=== PATIENT | female | born 1940 | race Asian ===

== ENCOUNTER 2016-04-01 23:39 | Inpatient (IN) | payer OTHER ==
[2016-04-01] MEDS ORDERED: ONDANSETRON 4 MG/2 ML VIAL ONE (23:56)
[2016-04-01] MEDS ORDERED: ONDANSETRON 4 MG/2 ML VIAL IVP ONE (23:57)
[2016-04-02] MEDS ORDERED: NS 1,000 ML IV ONE (00:02)
[2016-04-02] MEDS: NS 500 ML IV ONE ×2 (00:03→00:06)
--- NOTE | 2016-04-02 00:05 | EDPHY ---
HPI/HX/ROS/PE/MDM Narrative: Chief complaint: Abdominal pain, nausea and vomiting HPI: 75-year-old female presenting with upper abdominal pain, nausea vomiting and some loose stools today. Pain has that is worse over the course of the day. Has had some chills but no fever. No hematemesis. No blood or melena. No urinary symptoms. She has a history of a ruptured appendicitis in December of this year. Otherwise has no medical problems. She takes no medications. Has no allergies to medications. Pain is described as crampy in the upper abdomen. Occasionally has some lower abdominal pain as well. Has had 1 episode of large emesis and has also had some dry heaving associated. ROS: 10 point Review of Systems is negative except as noted in the HPI. Physical exam: Gen: Awake, Alert, uncomfortable appearing HEENT: Nose: no rhinorrhea Eyes: PERRLA, EOMI Mouth: Moist mucosa Neck: Supple, no JVD Chest: nontender, lungs clear to auscultation Heart: S1, S2 normal, no murmur Abd: Soft, epigastric and right lower quadrant tenderness to palpation, no guarding, no right upper quadrant pain Back: no CVA tenderness, no midline tenderness Ext: no edema, non-tender Skin: no rash Neuro: CN II-XII intact, Sensation grossly intact, Strength 5/5 in bilateral upper and lower extremities ED Course: EC. Sinus rhythm. Normal axis. Normal intervals. No ST or T-wave changes. Normal ECG. CT scan of the abdomen and pelvis: Interpreted by Dr. Estrada. There is a small bowel obstruction with a possible transition zone in the distal ilium. 0120 patient is resting. Pain is improved. CT scan shows a small bowel obstruction, likely an adhesion secondary to her appendectomy in December. I have paged Dr. Alaniz who was on-call for Dr. Toure who performed her appendectomy. NG tube ordered. Patient to be admitted under Dr. Alaniz's service. - Data Points Laboratory Results: Laboratory Results 04/02/16 00:01 04/02/16 00:01 04/02/16 00:01 WBC 12.78 H 10^3/uL (3.80-9.50) RBC 4.60 10^6/uL (4.18-5.33) Hgb 14.3 g/dL (12.6-16.3) Hct 42.0 % (38.0-47.0) MCV 91.3 fL (81.5-99.8) MCH 31.1 pg (27.9-34.1) MCHC 34.0 g/dL (32.4-36.7) RDW 13.3 % (11.5-15.2) Plt Count 260 10^3/uL (150-400) MPV 9.8 fL (8.7-11.7) Neut % (Auto) 81.8 H % (39.3-74.2) Lymph % (Auto) 14.6 L % (15.0-45.0) [place] % (Auto) 2.8 L % (4.5-13.0) Eos % (Auto) 0.1 L % (0.6-7.6) Baso % (Auto) 0.3 % (0.3-1.7) Nucleat RBC Rel Count 0.0 % (0.0-0.2) Absolute Neuts (auto) 10.46 H 10^3/uL (1.70-6.50) Absolute Lymphs (auto) 1.86 10^3/uL (1.00-3.00) Absolute Monos (auto) 0.36 10^3/uL (0.30-0.80) Absolute Eos (auto) 0.01 L 10^3/uL (0.03-0.40) Absolute Basos (auto) 0.04 10^3/uL (0.02-0.10) Absolute Nucleated RBC 0.00 10^3/uL (0-0.01) Immature Gran % 0.4 % (0.0-1.1) Immature Gran # 0.05 10^3/uL (0.00-0.10) Sodium 140 mEq/L (134-144) Potassium 4.4 mEq/L (3.5-5.2) Chloride 103 mEq/L (97-110) Carbon Dioxide 24 mEq/l (22-31) Anion Gap 13 mEq/L (8-16) BUN 17 mg/dL (7-23) Creatinine 0.6 mg/dL (0.6-1.0) Estimated GFR > 60 Glucose 183 H mg/dL (70-100) Calcium 9.6 mg/dL (8.5-10.4) Total Bilirubin 1.2 mg/dL (0.1-1.4) Conjugated Bilirubin 0.2 mg/dL (0.0-0.5) Unconjugated Bilirubin 1.0 mg/dL (0.0-1.1) AST 36 IU/L (14-46) ALT 35 IU/L (9-52) Alkaline Phosphatase 111 IU/L (38-126) Troponin I < 0.012 ng/mL (0-0.034) Total Protein 7.8 g/dL (6.3-8.2) Albumin 4.7 g/dL (3.5-5.0) Lipase 145.0 IU/L (23-300) Specimen Hemolysis 116 Medications Given: Discontinued Medications Sodium Chloride (Ns) 500 mls @ 0 mls/hr IV EDNOW ONE PRN Reason: Wide Open Stop: 04/02/16 00:03 Last Admin: 04/02/16 00:06 Dose: Not Given Sodium Chloride (Ns) 1,000 mls @ 0 mls/hr IV ONCE ONE PRN Reason: Wide Open Stop: 04/02/16 00:03 Last Admin: 04/02/16 00:06 Dose: 1,000 mls Morphine Sulfate (Morphine) 2 mg IVP EDNOW ONE Stop: 04/02/16 00:01 Last Admin: 04/02/16 00:03 Dose: 2 mg Ondansetron HCl (Zofran) 4 mg IVP EDNOW ONE Stop: 04/01/16 23:58 Last Admin: 04/01/16 23:58 Dose: 4 mg Pantoprazole Sodium (Protonix) 40 mg IVP EDNOW ONE Stop: 04/02/16 00:30 Last Admin: 04/02/16 00:36 Dose: 40 mg General Time Seen by Provider: 04/01/16 23:56 Initial Vital Signs: Initial Vital Signs Temperature (C) 36.8 C 04/01/16 23:43 Heart Rate 81 04/01/16 23:43 Respiratory Rate 20 04/01/16 23:43 Blood Pressure 158/91 H 04/01/16 23:43 O2 Sat (%) 98 04/01/16 23:43 O2 Delivery Mode Nasal Cannula O2 (L/minute) 1 Allergies/Adverse Reactions: No Known Allergies Allergy (Verified 04/01/16 23:45) Home Medications: Medication Instructions Recorded Acetaminophen [Tylenol 325mg (*)] 650 mg PO Q4 PRN #0 tab 01/27/16 Departure - Departure Disposition: [facility] Inpatient Acute Clinical Impression: Small bowel obstruction Condition: Fair
[2016-04-02 00:09] LABS: % IMMATURE GRANULYOCYTES 0.4 % (0.0-1.1); ABSOLUTE IMMATURE GRANULOCYTES 0.05 10^3/uL (0.00-0.10); ADD DIFF? NO; ADD MORPH? NO; ADD SCAN? NO; ATYPICAL LYMPHOCYTE FLAG 0 (0-99); FRAGMENT RBC FLAG 0 (0-99); HEMOGLOBIN 14.3 g/dL (12.6-16.3); LEFT SHIFT FLG 10 (0-99); LIPEMIA HEMOLYSIS FLAG 90 (0-99); MEAN CELL HEMOGLOBIN 31.1 pg (27.9-34.1); MEAN CELL VOLUME 91.3 fL (81.5-99.8); MEAN PLATELET VOLUME 9.8 fL (8.7-11.7); PLATELET CLUMPS FLAG 30 (0-99); PLATELET COUNT 260 10^3/uL (150-400); RED CELL DISTRIBUTION WIDTH 13.3 % (11.5-15.2)
--- NOTE | 2016-04-02 00:12 | CPEKG ---
Heart Rate: 63 RR Interval: 952 P-R Interval: 180 QRSD Interval: 74 QT Interval: 456 QTC Interval: 467 P [place]: 61 QRS [place]: 10 T Wave [place]: 12 EKG Severity - OTHERWISE NORMAL ECG - EKG Impression: SINUS RHYTHM EKG Impression: VENTRICULAR PREMATURE COMPLEX Electronically Signed By: Zaid Villalpando 02-Apr-2016 00:47:38
[2016-04-02 00:20] LABS: ALANINE AMINOTRANSFERASE 35 IU/L (9-52); ALBUMIN 4.7 g/dL (3.5-5.0); ALKALINE PHOSPHATASE 111 IU/L (38-126); ANION GAP 13 mEq/L (8-16); ASPARTATE AMINOTRANSFERASE 36 IU/L (14-46); BILIRUBIN,TOTAL 1.2 mg/dL (0.1-1.4); BILIRUBIN-CONJUGATED 0.2 mg/dL (0.0-0.5); CALCIUM 9.6 mg/dL (8.5-10.4); CARBON DIOXIDE 24 mEq/l (22-31); CHLORIDE 103 mEq/L (97-110); CREATININE 0.6 mg/dL (0.6-1.0); GLOMERULAR FILTRATION RATE > 60; GLUCOSE 183 mg/dL (70-100); POTASSIUM 4.4 mEq/L (3.5-5.2); SODIUM 140 mEq/L (134-144); SPECIMEN HEMOLYSIS 116; TOTAL PROTEIN 7.8 g/dL (6.3-8.2)
[2016-04-02] MEDS ORDERED: PANTOPRAZOLE SODIUM 40 MG VIAL IVP ONE (00:29)
[2016-04-02 00:34] LABS: TROPONIN I < 0.012 ng/mL (0-0.034)
[2016-04-02] MEDS ORDERED: IOPAMIDOL (ISOVUE-300) 100 ML BTL IV ONE ×2 (00:39→00:55)
[2016-04-02] MEDS ORDERED: LIDOCAINE 2% JELLY 20 ML (UROJECT) ONE (01:30)
[2016-04-02] MEDS ORDERED: BENZOCAINE UNIT DOSE SPRAY HURRICAINE MM ONE ×2 (01:50→01:56)
[2016-04-02] MEDS ORDERED: LIDOCAINE 2% JELLY 20 ML (UROJECT) UR ONE (01:56)
[2016-04-02] MEDS ORDERED: ACETAMINOPHEN 325 MG TAB PO PRN (02:03)
[2016-04-02] MEDS ORDERED: ONDANSETRON DISINTEGRATING 4 MG TAB PO PRN (02:03)
[2016-04-02] MEDS ORDERED: ONDANSETRON 4 MG/2 ML VIAL IVP PRN (02:03)
--- NOTE | 2016-04-02 02:08 | PDGENHP ---
History and Physical - Chief Complaint abdominal pain - History of Present Illness Patient is a a 75-year-old female with history of recent ruptured appendicitis in 12/2015 presents to the ED with complaint of abdominal pain nausea and vomiting. She reports bowel movements have been irregular and infrequent for the past month. On day of presentation she suddenly developed loss of appetite as well as crampy type diffuse abdominal pain. She went to her daughter's house for dinner but did not eat. On arrival back home she began dry heaving and had 1 large bilious episode of vomiting. Around this time she also had a episode of loose stool. She continues to pass flatus. Given her symptoms she decided to come to the ED for further evaluation. In the ED patient was afebrile and hemodynamically stable. Labs revealed mild leukocytosis but normal CMP, negative troponin and normal EKG. CT abdomen and pelvis was obtained and revealed SBO with fecalization and transition in the right lower quadrant. NGT was placed in the ED and patient was admitted for further management. History Information - Allergies/Home Medication List Allergies/Adverse Reactions: No Known Allergies Allergy (Verified 04/01/16 23:45) I have personally reviewed and updated: family history, medical history, social history, surgical history - Past Medical History Additional medical history: Distant history of breast cancer, treated with lumpectomy and RT. - Surgical History Additional surgical history: Laparoscopic appendectomy and abscess drainage (2015) - Family History Positive for: non-pertinent - Social History Smoking Status: Never smoked Alcohol Use: None Drug Use: None Additional social history: Patient currently works as has a [employer]. Lives alone , 2 daughters live in the area. Review of Systems ROS: 10pt was reviewed & negative except for what was stated in HPI & below Physical Exam Temp Pulse Resp BP Pulse Ox 36.5 C 80 20 145/104 H 94 04/02/16 02:04 04/02/16 02:04 04/02/16 02:04 04/02/16 02:04 04/02/16 02:04 Constitutional: no apparent distress, appears nourished, uncomfortable Eyes: PERRL, anicteric sclera, EOMI Ears, Nose, Mouth, Throat: moist mucous membranes, hearing normal, ears appear normal, no oral mucosal ulcers Cardiovascular: regular rate and rhythym, no murmur, rub, or gallop, pulses symmetric bilaterally, No JVD, No edema Peripheral Pulses: 2+: dorsalis-pedis (R), dorsalis-pedis (L) Respiratory: no respiratory distress, no rales or rhonchi, clear to auscultation Gastrointestinal: other (Hypoactive bowel sounds, soft, mild diffuse tenderness) , No guarding, No rebound Genitourinary: no bladder fullness, no bladder tenderness Skin: warm, normal color, no rashes or abrasions, no fluctuance, no induration, No mottled Musculoskeletal: full muscle strength, no muscle tenderness, normal joint ROM, no joint effusions Neurologic: AAOx3, sensation intact bilaterally, CN II-XII Intact, No weakness, No numbness Psychiatric: interacting appropriately, not anxious, not encephalopathic, thought process linear Lab Data & Imaging Review 04/02/16 04:58 04/02/16 04:58 WBC 12.78 10^3/uL (3.80-9.50) H 04/02/16 00:01 RBC 4.60 10^6/uL (4.18-5.33) 04/02/16 00:01 Hgb 14.3 g/dL (12.6-16.3) 04/02/16 00:01 Hct 42.0 % (38.0-47.0) 04/02/16 00:01 MCV 91.3 fL (81.5-99.8) 04/02/16 00:01 MCH 31.1 pg (27.9-34.1) 04/02/16 00:01 MCHC 34.0 g/dL (32.4-36.7) 04/02/16 00:01 RDW 13.3 % (11.5-15.2) 04/02/16 00:01 Plt Count 260 10^3/uL (150-400) 04/02/16 00:01 MPV 9.8 fL (8.7-11.7) 04/02/16 00:01 Neut % (Auto) 81.8 % (39.3-74.2) H 04/02/16 00:01 Lymph % (Auto) 14.6 % (15.0-45.0) L 04/02/16 00:01 [place] % (Auto) 2.8 % (4.5-13.0) L 04/02/16 00:01 Eos % (Auto) 0.1 % (0.6-7.6) L 04/02/16 00:01 Baso % (Auto) 0.3 % (0.3-1.7) 04/02/16 00:01 Nucleat RBC Rel Count 0.0 % (0.0-0.2) 04/02/16 00:01 Absolute Neuts (auto) 10.46 10^3/uL (1.70-6.50) H 04/02/16 00:01 Absolute Lymphs (auto) 1.86 10^3/uL (1.00-3.00) 04/02/16 00:01 Absolute Monos (auto) 0.36 10^3/uL (0.30-0.80) 04/02/16 00:01 Absolute Eos (auto) 0.01 10^3/uL (0.03-0.40) L 04/02/16 00:01 Absolute Basos (auto) 0.04 10^3/uL (0.02-0.10) 04/02/16 00:01 Absolute Nucleated RBC 0.00 10^3/uL (0-0.01) 04/02/16 00:01 Immature Gran % 0.4 % (0.0-1.1) 04/02/16 00:01 Immature Gran # 0.05 10^3/uL (0.00-0.10) 04/02/16 00:01 Sodium 140 mEq/L (134-144) 04/02/16 00:01 Potassium 4.4 mEq/L (3.5-5.2) 04/02/16 00:01 Chloride 103 mEq/L (97-110) 04/02/16 00:01 Carbon Dioxide 24 mEq/l (22-31) 04/02/16 00:01 Anion Gap 13 mEq/L (8-16) 04/02/16 00:01 BUN 17 mg/dL (7-23) 04/02/16 00:01 Creatinine 0.6 mg/dL (0.6-1.0) 04/02/16 00:01 Estimated GFR > 60 04/02/16 00:01 Glucose 183 mg/dL (70-100) H 04/02/16 00:01 Calcium 9.6 mg/dL (8.5-10.4) 04/02/16 00:01 Total Bilirubin 1.2 mg/dL (0.1-1.4) 04/02/16 00:01 Conjugated Bilirubin 0.2 mg/dL (0.0-0.5) 04/02/16 00:01 Unconjugated Bilirubin 1.0 mg/dL (0.0-1.1) 04/02/16 00:01 AST 36 IU/L (14-46) 04/02/16 00:01 ALT 35 IU/L (9-52) 04/02/16 00:01 Alkaline Phosphatase 111 IU/L (38-126) 04/02/16 00:01 Troponin I < 0.012 ng/mL (0-0.034) 04/02/16 00:01 Total Protein 7.8 g/dL (6.3-8.2) 04/02/16 00:01 Albumin 4.7 g/dL (3.5-5.0) 04/02/16 00:01 Lipase 145.0 IU/L (23-300) 04/02/16 00:01 Specimen Hemolysis 116 04/02/16 00:01 Visualized and Interpreted imaging results: Yes Interpretation: CT abdomen and pelvis: SBO with fecalization, transition in RLQ Visualized and Interpreted EKG results: Yes EKG Interpretation: Positive for: normal sinsus rhythm Assessment & Plan Assessment: Patient is a 75-year-old female with history of recent ruptured appendicitis 2 months ago, presents with abdominal pain nausea vomiting, CT reveals acute small -bowel obstruction. Plan: # acute small bowel obstruction Patient is still passing flatus, had an episode of likely overflow diarrhea prior to presentation. CT reveals significant fecalization in addition to SBO. - NGT to low cont suction - NPO - IVF hydration - monitor electrolytes - pain control prn - may require bowel disimpaction # dispo: admit to inpt service for > 2 MN stay # gen: NPO DVT ppx: low risk, SCDs Full code
[2016-04-02] MEDS: NS 1,000 ML IV SCH ×3 (03:54→22:03)
[2016-04-02 05:42] LABS: % IMMATURE GRANULYOCYTES 0.2 % (0.0-1.1); ABSOLUTE IMMATURE GRANULOCYTES 0.02 10^3/uL (0.00-0.10); ADD DIFF? NO; ADD MORPH? NO; ADD SCAN? NO; ATYPICAL LYMPHOCYTE FLAG 0 (0-99); FRAGMENT RBC FLAG 0 (0-99); HEMATOCRIT 38.6 % (38.0-47.0); HEMOGLOBIN 13.2 g/dL (12.6-16.3); LEFT SHIFT FLG 10 (0-99); LIPEMIA HEMOLYSIS FLAG 90 (0-99); MEAN CELL HEMOGLOBIN 31.1 pg (27.9-34.1); MEAN CELL HEMOGLOBIN CONCENTR. 34.2 g/dL (32.4-36.7); MEAN PLATELET VOLUME 9.9 fL (8.7-11.7); PLATELET CLUMPS FLAG 0 (0-99); PLATELET COUNT 234 10^3/uL (150-400); RED BLOOD CELL COUNT 4.24 10^6/uL (4.18-5.33); RED CELL DISTRIBUTION WIDTH 13.3 % (11.5-15.2)
[2016-04-02 05:59] LABS: ANION GAP 11 mEq/L (8-16); CARBON DIOXIDE 25 mEq/l (22-31); CHLORIDE 104 mEq/L (97-110); CREATININE 0.5 mg/dL (0.6-1.0); GLOMERULAR FILTRATION RATE > 60; GLUCOSE 162 mg/dL (70-100); MAGNESIUM 1.6 mg/dL (1.6-2.3); POTASSIUM 4.2 mEq/L (3.5-5.2); SODIUM 140 mEq/L (134-144)
[2016-04-02] MEDS: ENOXAPARIN 40 MG/0.4 ML SYR SC SCH (07:52)
--- NOTE | 2016-04-02 09:25 | SOAPPROG ---
SOAP Progress Note Assessment/Plan: Assessment/Plan 75yo F c SBO - VSS, HDS. Did have some pain this am which has responded to IV pain medications. Her abdomen is soft and nondistended without rebound or guarding. She does have hypoactive bowel sounds. Will plan to decompress today with NGT, have encouraged ambulation. Cont NGT. Plan for SBFT tomorrow if no bowel function today 04/02/16 09:22 Subjective: no nausea, minimal abdominal pain no flatus or BM Objective: Vital Signs Temp Pulse Resp BP Pulse Ox 36.8 C 65 16 148/80 H 99 04/02/16 08:43 04/02/16 08:43 04/02/16 08:43 04/02/16 08:43 04/02/16 08:43 Laboratory Results 04/02/16 04:58 04/02/16 04:58 04/01/16 04/02/16 04/03/16 05:59 05:59 05:59 Intake Total 1248 Output Total 75 Balance 1173 ICD10 Worksheet Patient Problems: Problems Problem Status Diagnosed Small bowel obstruction Acute Abdominal pain Acute Diarrhea Acute Nausea and vomiting Acute Ruptured appendicitis Acute
--- NOTE | 2016-04-02 11:34 | GHP ---
[f rep st] HISTORY AND PHYSICAL DATE OF ADMISSION: 04/02/2016 CHIEF COMPLAINT: Abdominal pain with nausea and vomiting. HISTORY OF PRESENT ILLNESS: This is a 75-year-old female, status post laparoscopic appendectomy for ruptured appendicitis performed in December of 2015 per my partner, Dr. Toure. The patient states connor t she had an uneventful course since her hospitalization; however, did develop some acute onset abdom inal pain, nausea, and vomiting approximately 24 hours ago. This persisted to the point where she did end up calling the call center and I did have a phone conversation with the patient's daughter. We discussed the patient's symptoms and I said that I was uncomfortable evaluating her over the phone, a s she was so far out from her surgery. She subsequently presented to the emergency department, where she was noted to be afebrile and hemodynamically stable. She did have a CT scan of her abdomen and pelvis, which did show some fecalization of the distal small bowel with a possible transition point i n the distal ileum, consistent with a small bowel obstruction. She denies having fevers or chills, a nd feels better after receiving some IV fluids, narcotics, and nasogastric tube. PAST MEDICAL HISTORY: Consistent for distant history of breast cancer. PAST SURGICAL HISTORY: Lumpectomy for the breast cancer with radiation and laparoscopic appendectomy performed in December of 2015. FAMILY HISTORY: Noncontributory. SOCIAL HISTORY: Denies alcohol or tobacco use. The patient works as a [employer]. Lives alone. Has 2 da ughters, who live in the area. REVIEW OF SYSTEMS: A full 10-point review of systems was performed and unless explicitly stated abov e, otherwise negative. CURRENT MEDICATIONS: Include orue-nny-ckvruiz herbal supplements alone. PHYSICAL EXAMINATION: VITAL SIGNS: Blood pressure 140/80, pulse 65. She is 99% on 2 L and has a tem perature of 36. GENERAL: She is alert and oriented, in no acute distress. CV: She has a regular r ate and rhythm without any murmurs. LUNGS: Clear. ABDOMEN: Soft, nondistended, nontender with hyp oactive bowel sounds. There is no rebound tenderness or guarding. EXTREMITIES: Warm and well perfu sed. LABS: White count is 10, H and H stable at 13 and 39, platelets 234. Chemistry is unremarkable. CT scan reviewed shows small bowel obstruction with fecalization of the distal small bowel, possible tr ansition point in the terminal ileum. ASSESSMENT AND PLAN: 75-year-old female with small bowel obstruction, status post laparoscopic appen dectomy for perforated appendicitis. I had a long discussion with the patient regarding her diagnosi s. Currently, clinically her abdomen is completely soft, nondistended, and has no worrisome features. The nasogastric tube is in place and it has evacuated approximately 100 cc of bilious fluid. I did tell the patient that more than likely this is secondary to adhesive disease, given her recent histor y and diagnosis of perforated appendicitis, and that it will more than likely resolve with conservati ve management. She has no worrisome findings at this point in time. We will plan to continue nasogas tric tube decompression, IV fluid hydration, and narcotics as needed. We will plan to reevaluate in the morning. If the patient has no bowel function at that point in time, would likely proceed with a small bowel follow-through, as this would assist with the distal fecalization, as it would be cathart ic in that respect. /[id number]/MODL
--- NOTE | 2016-04-02 12:59 | HOSPPROG ---
Hospitalist Progress Note Assessment/Plan: Assessment: Patient is a 75-year-old female with history of recent ruptured appendicitis 2 months ago, presents with abdominal pain nausea vomiting, CT reveals acute small -bowel obstruction. Plan: # acute small bowel obstruction continue care per surgery # dispo: admit to inpt service for > 2 MN stay # gen: NPO DVT ppx: low risk, SCDs Full code Subjective: continues to have abdominal pain. Denies flatus. No bowel movements. Objective: Vital Signs Temp Pulse Resp BP Pulse Ox 36.8 C 65 16 148/80 H 99 04/02/16 08:43 04/02/16 08:43 04/02/16 08:43 04/02/16 08:43 04/02/16 08:43 Laboratory Results 04/02/16 04:58 04/02/16 04:58 04/01/16 04/02/16 04/03/16 05:59 05:59 05:59 Intake Total 1248 Output Total 75 700 Balance 1173 -700 - Physical Exam Constitutional: no apparent distress, appears nourished, not in pain Cardiovascular: regular rate and rhythym, no murmur, rub, or gallop Respiratory: no respiratory distress, no rales or rhonchi, clear to auscultation Gastrointestinal: distension, other ( H), No tenderness, No guarding, No rebound Genitourinary: tirado in urethra (hypoactive bowel sounds) ICD10 Worksheet Patient Problems: Problems Problem Status Diagnosed Small bowel obstruction Acute Abdominal pain Acute Diarrhea Acute Nausea and vomiting Acute Ruptured appendicitis Acute
--- NOTE | 2016-04-02 13:20 | CT ---
CT Scan of the Abdomen and Pelvis (With Contrast) Clinical Indications: Abdominal pain. Comparison: January 22, 2016. Technique: Dilute contrast was given orally prior to scanning. 70 mL of Isovue were given intraveno usly by machine power injection. Multidetector helical CT imaging was performed from the diaphragm t o the symphysis pubis. Dose reduction techniques were utilized. Findings: Abdomen: The lung bases are clear, and there is no significant pleural fluid. The liver is normal. The biliary ducts and gallbladder are unremarkable. The pancreas and spleen are normal. The adrena l glands and kidneys are normal. No adenopathy and no masses are found. No aneurysm of the abdomina l aorta. Pelvis: The urinary bladder is unremarkable. No free fluid in the pelvis. No masses are identified. The colon is predominantly decompressed. There is a small bowel obstruction. Transition point is in the right lower quadrant distal ileum. There is fecalization of material in the small bowel. Calcified fibroid is noted in the low uterus. An exophytic fibroid is noted off the superior uterus. A calcified nodule unchanged is noted in the right ovary. Impression: 1. High-grade small bowel obstruction with transition in the ileum. There is fecalization of material in the colon. 2. Fibroid of the uterus and coarse calcification in the right ovary, benign is unchanged from compar marva examination. Critical results relayed by Dr. Estrada to Dr. Villalpando on April 02, 2016 at 1330 hours.
[2016-04-03 07:31] VITALS: RESP 18
--- NOTE | 2016-04-03 09:17 | SOAPPROG ---
SOAP Progress Note Assessment/Plan: Assessment/Plan 75yo F c SBO - abdomen remains soft and nondistended with good bowel sounds. Now passing flatus, no nausea/vomiting. Will plan for SBFT today. 04/02/16 09:22 04/03/16 09:16 Subjective: Doing well, passing flatus. No BM. Denies pain Objective: Vital Signs Temp Pulse Resp BP Pulse Ox 36.7 C 59 L 18 129/75 H 92 04/03/16 07:30 04/03/16 07:30 04/03/16 07:30 04/03/16 07:30 04/03/16 07:30 Laboratory Results 04/02/16 04:58 04/02/16 04:58 04/02/16 04/03/16 04/04/16 05:59 05:59 05:59 Intake Total 1248 2302 Output Total 75 925 Balance 1173 1377 ICD10 Worksheet Patient Problems: Problems Problem Status Diagnosed Small bowel obstruction Acute Abdominal pain Acute Diarrhea Acute Nausea and vomiting Acute Ruptured appendicitis Acute
[2016-04-03] MEDS: ENOXAPARIN 40 MG/0.4 ML SYR SC SCH (10:13)
--- NOTE | 2016-04-03 13:25 | DX ---
Small Bowel Follow-Through Indication: Obstruction. Comparison: April 02, 2016. Technique: Two bottles of dilute Gastrografin were administered via the NG, one was administered at t he start of the examination and then subsequently at 30 minutes. Spot fluoroscopic images were perfor med until contrast reached the cecum. fluoroscopic imaging with a compression paddle was performed. Fluoroscopy Dose: 28.4 mGy. Findings: Since prior examination, the patient has had NG tube placement. The bowel appears nondilate d. Gastrografin was used to evaluate the small bowel. At approximately one hour, there was colonic co ntrast present. Spot fluoroscopic imaging of the abdomen was obtained. A paddle was used to compress multiple loops of bowel. There is no transition point, and the bowel caliber is normal. Impression: Resolved small bowel obstruction with contrast reaching the cecum at one hour. Critical results relayed by Dr. Estrada to Dr. Alaniz April 03, 2016, 1517 hours.
[2016-04-03 15:48] VITALS: BP 137/67; PULSE 63; TEMP 98; O2SAT 95
--- NOTE | 2016-04-03 16:36 | GDS ---
[f rep st] DISCHARGE SUMMARY DISCHARGE DIAGNOSES: Partial small bowel obstruction. HOSPITAL COURSE: Patient is a 75-year-old female, over 2 months out from a laparoscopic appendectomy for perforated appendicitis. She presents to the ED on the evening of the with abdominal pain, nausea and vomiting. She subsequently had a CT scan, which showed small bowel obstruction. Her abdo tiffani exam at that point in time, was completely reassuring. She was managed conservatively with cyrus ogastric tube decompression. Subsequently ended up having minimal output. She underwent a small bow el follow-through which showed contrast all the way through the small bowel and into the colon at jus t over an hour. She, at that point in time, started to have bowel function. The nasogastric tube wa s removed. She then had her diet advanced, which was well tolerated by the patient with no pain. Olivia edge was subsequently discharged home in stable condition. DISCHARGE MEDICATIONS: Herbal supplements and Metamucil fiber. DISPOSITION: Home. She will follow up with her primary care provider, and call with any questions o r concerns. /[id number]/MODL
--- NOTE | 2016-04-03 16:40 | HOSPPROG ---
Hospitalist Progress Note Assessment/Plan: care transferred to Dr. Sutton who has accepted to take over care as PCP Objective: Vital Signs Temp Pulse Resp BP Pulse Ox 36.6 C 63 18 137/67 H 95 04/03/16 15:46 04/03/16 15:46 04/03/16 15:46 04/03/16 15:46 04/03/16 15:46 Laboratory Results 04/02/16 04:58 04/02/16 04:58 04/02/16 04/03/16 04/04/16 05:59 05:59 05:59 Intake Total 1248 2302 Output Total 75 925 900 Balance 1173 1377 -900 ICD10 Worksheet Patient Problems: Problems Problem Status Diagnosed Small bowel obstruction Acute Abdominal pain Acute Diarrhea Acute Nausea and vomiting Acute Ruptured appendicitis Acute
== END 2016-04-03 18:00 | disposition home or self-care (01) | DRG 390 ==
LOC: F1N 04-02 03:35
PROVIDERS: ADMIT Surgery; ATTEND Surgery
DX: K56.60 Unspecified intestinal obstruction (principal); Z85.3 Personal history of malignant neoplasm of breast; Z92.3 Personal history of irradiation
CPT/HCPCS: 96374; 97161-GP; G8978-GP-CI; G8979-GP-CI; G8980-GP-CI; J1650; J2405; Q9967